=== PATIENT | male | born 1965 | race Hispanic/Latino ===

== ENCOUNTER 2018-10-18 17:31 | Inpatient (IN) | payer MEDICARE ==
--- NOTE | 2018-10-18 18:02 | C.PDOC ---
History Of Present Illness 53 y/o male was transferred from [facility] for admission of depression. Patient reports long time with depression and anxiety, mainly complains of hunger at this time. Time Seen by Provider: 10/18/18 17:52 Chief Complaint (Nursing): Psychiatric Evaluation History Per: Patient History/Exam Limitations: no limitations Onset/Duration Of Symptoms: Days Current Symptoms Are (Timing): Still Present Severity: Moderate Past Medical History Reviewed: Historical Data, Nursing Documentation, Vital Signs - Medical History PMH: No Chronic Diseases Other Surgeries: Hx of surgeries Family History: States: No Known Family Hx Review Of Systems Except As Marked, All Systems Reviewed And Found Negative. Constitutional: Negative for: Fever, Chills Psych: Positive for: Anxiety, Depression. Negative for: Suicidal ideation Physical Exam - Physical Exam Appears: No Acute Distress Skin: Normal Color, Warm, Dry Head: Atraumatic, Normacephalic Eye(s): bilateral: Normal Inspection Nose: Normal Oral Mucosa: Moist Neck: Supple Chest: Symmetrical Cardiovascular: Rhythm Regular Respiratory: Normal Breath Sounds, No Rales, No Rhonchi, No Wheezing Gastrointestinal/Abdominal: Normal Exam, Soft, No Tenderness, No Guarding, No Rebound Neurological/Psych: Oriented x3, Normal Speech Medical Decision Making Medical Decision Making: Transfer forms and papers reviewed. Patient was accepted for psych admission by Dr Zhao for Depression Disposition - Disposition Disposition: HOSPITALIZED Disposition Time: 18:01 Condition: STABLE - POA Present On Arrival: None - Clinical Impression Clinical Impression: Depression - PA / SENIOR ASSET MANAGER / Resident Statement MD/DO has reviewed & agrees with the documentation as recorded. - Scribe Statement The provider has reviewed the documentation as recorded by the Dona Maloney Provider Attestation All medical record entries made by the Mylesibe were at my direction and personally dictated by me. I have reviewed the chart and agree that the record accurately reflects my personal performance of the history, physical exam, medical decision making, and the department course for this patient. I have also personally directed, reviewed, and agree with the discharge instructions and disposition. Decision To Admit - Pt Status Changed To: Hospital Disposition Of: Inpatient - Admit Certification Admit to Inpatient:: After my assessment, the patient will require hospitalization for at least two midnights. This is because of the severity of symptoms shown, intensity of services needed, and/or the medical risk in this patient being treated as an outpatient. - InPatient: Physician Admission Certification: I certify that this patient requires 2 or more midnights of care for the following reason:: Patient with history of depression and expressed SI, will benefit from inpatient treatment for psych disorder - . Bed Request Type: Psychiatry Admitting Physician: Mojgan Zhao Patient Diagnosis: Depression
--- NOTE | 2018-10-18 19:02 | PCM.BM ---
<ManzanaresRenetta Shavonne - Last Filed: 10/18/18 19:01> Treatment Plan Problems - Problems identified on initial assessmt Depression Date Initiated: 10/18/18 Time Initiated: 19:01 Assessment reference: NA Status: Active Treatment assets and liabiliti Patient Assests: cooperative, ADL independent, negotiates basic needs, cognitively intact Patient Liabilities: live alone, financial problems, poor support system, substance abuse, medical problems - Milieu Protocol Maintain good personal hygiene: daily Encourage regular showers, daily Remind patient to perform daily oral care, daily Assist patient to perform ADL's Conduct patient checks and document Observation sheet: Q15 minutes Maintain personal safety: every shift Educate patient to report safety concerns to staff, every shift Monitor environment for contraband/sharps Medication safety: Monitor for expected outcome, potential side effects: every shift, Assess barriers to learning: every shift, Assess readiness for medication education: every shift <Aarti Hill - Last Filed: 10/19/18 16:21> Family Contact Family involvement: Patient does not wish Family/SO involvement Family contact: Patient declines to allow family contact at present - Goals for Treatment Patient goals for treatment: "I want to be referred to an outpatient program." Discharge/Continuing Care - Education Needs Education Needs: Patient Medication, Patient Diagnosis/Disease Process, Patient Coping Skills, Patient Placement options, Patient Community resources - Discharge Discharge Criteria: Free of Suicidal thoughts, Normal sleep pattern, Ability to care for self, Reduction of target symptoms Discharge to:: Home, With Family - Treatment Team Participation Discussed with Family/SO: No Was Patient/Family/SO present at Treatment Team Meeting: Yes <Harrison Ashraf - Last Filed: 10/22/18 18:50> - Diagnosis (1) Major depressive disorder, recurrent severe without psychotic features Status: Acute Interventions: 10/22/18 18:49 * Assess/adjust medications daily and /or as needed * See patient on an individual basis 7x/week to assess status of hallucinations * Discuss risks, benefits, side effects and alternatives of medications (2) Opioid use disorder, severe, dependence Status: Acute Interventions: 10/22/18 18:50 * Assess 7x/week regarding severity of withdrawal * Educate regarding risks, benefits, side effects and alternatives of medications * Use Motivational Interviewing for abstinence * Use CBT for relapse prevention * Medication management for withdrawal symptoms * Encourage medication assisted treatment
[2018-10-18] MEDS ORDERED: oxyCODONE 30 mg Immediate Release Tab PO PRN (19:52)
[2018-10-18] MEDS: oxyCODONE 30 mg Immediate Release Tab PO PRN (22:01)
[2018-10-19] MEDS: oxyCODONE 30 mg Immediate Release Tab PO PRN ×3 (06:12→22:22)
--- NOTE | 2018-10-19 16:52 | PCM.PSYCH ---
Initial Psychiatric Evaluation - Initial Psychiatric Evaluation Type of Admission: Voluntary Legal Status: Capacity Chief Complaint (in patient's own words): I'm here for for my depression and passive suicidal ideations. History of Present Illness and Precipitating Events: Patient is a 53 years old, , unemployed, on disability, male who was admitted due to worsening of depression and suicidal ideations. Patient with history of depression and suicidal ideations without any plan started in December 2017 after the of his mother. Patient reported now his depression is worse was sleeping and appetite problem. Denied any previous suicidal attempts. Feels hopeless and helpless. Also reported that when he is very depressed he hears and sees things. He has history of one previous psychiatric admission at [facility]. Patient denied any visit to any psychiatrist in the past. His psychiatrist is prescribing him medications including OxyContin. Patient denied any current psychotic, manic or anxiety symptoms. Denied use of any drugs including alcohol, cocaine, cannabis and heroin. History of cannabis use during his high school years. Patient also taking OxyContin every 4 hours and was feeling anxious at the time of next dose of just before next dose. Patient was born in [place] and has high school graduation. Not working, is on disability. He is and has 2 grown-up kids. He lives with ex-. His height is 6 feet and weight is 280 pounds. Current Medications: Active Medications Generic Name Dose Route Start Last Admin Trade Name Freq PRN Reason Stop Dose Admin Apixaban 5 mg 10/18/18 19:30 10/19/18 09:06 Eliquis PO 5 mg BID CARTER Administration Aspirin 81 mg 10/19/18 10:00 10/19/18 09:06 Ecotrin PO 81 mg DAILY CARTER Administration Duloxetine HCl 30 mg 10/19/18 10:00 10/19/18 09:06 Cymbalta PO 30 mg DAILY CARTER Administration Gabapentin 300 mg 10/18/18 19:45 10/19/18 09:06 Neurontin PO 300 mg BID CARTER Administration Hydroxyzine HCl 50 mg 10/18/18 19:31 10/19/18 12:17 Atarax PO 50 mg Q6H PRN Administration Anxiety Influenza Virus Vaccine 60 mcg 10/21/18 10:00 Fluzone Quad [id number] IM 10/21/18 10:01 .ONCE ONE Lisinopril 20 mg 10/19/18 10:00 10/19/18 09:06 Zestril PO 20 mg DAILY CARTER Administration Oxycodone HCl 30 mg 10/18/18 21:33 10/19/18 14:23 Oxycodone Immediate Release Tab PO 30 mg Q8H PRN Administration Pain, severe (8-10) Pneumococcal Polyvalent Vaccine 0.5 ml 10/21/18 10:00 Pneumovax 23 Vaccine IM 10/21/18 10:01 .ONCE ONE Rosuvastatin Calcium 10 mg 10/18/18 22:00 10/18/18 21:29 Crestor PO 10 mg HS CARTER Administration Trazodone HCl 100 mg 10/18/18 19:31 10/18/18 21:29 Desyrel PO 100 mg HS PRN Administration Insomnia Past Psychiatric History - Past Psychiatric History Previous Treatment History: Inpatient At [facility] hospital: [facility] History of Abuse: None reported History of ETOH/Drug Use: See HPI History of Family Illness: Reported his father has history of unknown psychiatric illness. Pertinent Medical Hx (Current Medical&Sleep Prob, Allergies): Allergies Allergy/AdvReac Type Severity Reaction Status Date / Time Penicillins Allergy Verified 10/18/18 18:01 ALPRAZolam [Xanax] 1 mg PO TID 10/18/18 Apixaban [Eliquis] 5 mg PO BID 10/18/18 Aspirin [Ecotrin] 81 mg PO DAILY 10/18/18 Gabapentin [Neurontin] 100 mg PO TID 10/18/18 Lisinopril [Zestril] 40 mg PO DAILY 10/18/18 Oxycodone HCl [Roxicodone] 30 mg PO Q6 10/18/18 Pravastatin Sodium [Pravachol] 20 mg PO DAILY 10/18/18 Sertraline [Zoloft] 125 mg PO DAILY 10/18/18 hydrOXYzine HCl [Atarax] 50 mg PO Q6 10/18/18 traZODone [trazODONE HYDROCHLORIDE] 50 mg PO HS 10/18/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 DVT, left lower leg Coronary artery disease Hypertension Hypercholesterinemia Obesity Review of Systems - Psychiatric Psychiatric: As Per HPI, Depression, Hopelessness Mental Status Examination - Personal Presentation Personal Presentation: Looks stated age - Affect Affect: Depressed - Motor Activity Motor Activity: Calm - Reliability in Providing Information Reliability in Providing Information: Fair - Speech Speech: Relevant - Mood Mood: Depressed - Formal Thought Process Formal Thought Process: No Impairment - Hallucinations/Delusions Hallucinations: Other (None reported) Delusions: Other - Obsessions/Compulsions Obsessions: None Compulsions: None - Cognitive Functions Orientation: Person, Place, Situation, Time Sensorium: Alert Attention/Concentration: Attentive Abstract Thinking: [place] Estimate of Intelligence: Average Judgement: Imparied, as evidence by: Lack of insight into illness Memory: Recent intact, as evidence by: Ability to recall events of the day, Remote intact, as evidenced by: Ability to recall historical events - Risk Risk: Withdrawal, Diminished functioning - Strength & Assets Inventory Strength & Assets Inventory: Family support, Cooperative - Limitations Limitations: Other (Lives with his ex-) DSM 5 DX - DSM 5 DSM 5 Diagnosis: Major depressive disorder recurrent severe without psychotic features Opioid use disorder severe - Recommended/Plan of Treatment Treatment Recommendations and Plan of Treatment: Patient education. Supportive therapy. CBT for relapse prevention. GA for abstinence. We will continue medication for depression and other medical issues. Also when necessary medications. Projected ELOS: 8-10 days - Smoking Cessation Smoking Cessation Initiated: No
[2018-10-20] MEDS: oxyCODONE 30 mg Immediate Release Tab PO PRN ×3 (06:23→22:18)
--- NOTE | 2018-10-20 15:09 | PCM.PYCHPN ---
Psychiatric Progress Note - Psychiatric Progress Note Patient seen today, length of contact: 15 minutes Patient Chief Complaint: I'm feeling little better. Problems Identified/Issues Discussed: Patient seen, chart reviewed, case discussed with the staff. Issues related to illness and treatment were discussed with the patient and staff. Reported compliant with treatment with no adverse effects. Tolerating treatment very well. Reported feeling little better with better sleep. Awake, alert and confused Calm and cooperative with good eye contact. Mood reported as depressed. Affect appropriate. Treatment discussed with the patient. Needs more time for stabilization. Aftercare discussed with the patient. Denied any delusions, auditory or visual hallucinations, suicidal ideations or homicidal ideations at the time of evaluation. Medical Problems: Rodney's syndrome Rheumatoid arthritis osteoarthritis DVT left lower leg Coronary artery disease Hypertension Hypercholesterinemia Obesity Diagnostic Results: Reviewed DSM 5 Symptoms Update: Some improvement with treatment Medication Change: No Medical Record Reviewed: Yes Mental Status Examination - Cognitive Function Orientation: Person, Place, Situation, Time Memory: Intact Attention: WNL Concentration: WNL Association: WNL Fund of Knowledge: WNL - Mood Mood: Depressed (Less than before) - Affect Affect: Other (Appropriate) - Speech Speech: Appropriate - Formal Thought Process Formal Thought Process: No Impairment Psychotic Thoughts and Behaviors: None - Suicidal Ideation Suicidal Ideation: No - Homicidal Ideation Homicidal Ideation: No Goal/Treatment Plan - Goal/Treatment Plan Need for Continued Stay: Remain at risks for inpatient hospitalization, Discharge may exacerbated symptoms, Severe functional impairment Progress Toward Problem(s) and Goals/Treatment Plan: Patient education. Supportive therapy. CBT for relapse prevention. PR for abstinence. Continue treatment as before. Estimated Date of D/C: 10/24/18 - Smoking Cessation Smoking Cessation Initiated: No Reason for not providing: Patient doesn't smoke cigarettes
[2018-10-21] MEDS: oxyCODONE 30 mg Immediate Release Tab PO PRN ×3 (06:21→22:24)
[2018-10-21] MEDS ORDERED: Influenza Vaccine 60 MCG/0.5 ML SYR (3 yr & up) IM ONE (10:00)
[2018-10-21] MEDS ORDERED: Pneumococcal 23-Valent Vaccine IM ONE (10:00)
--- NOTE | 2018-10-21 18:38 | PCM.PYCHPN ---
Psychiatric Progress Note - Psychiatric Progress Note Patient seen today, length of contact: 15 minutes Patient Chief Complaint: I'm feeling suicidal again. Problems Identified/Issues Discussed: Patient seen, chart reviewed, case discussed with the staff. Issues related to illness and treatment were discussed with the patient and staff. Reported compliant with treatment with no adverse effects. Tolerating treatment very well. Reported feeling suicidal again. We will start lithium 300 mg twice a day. Patient agreed. Awake, alert and oriented 3. Calm and cooperative with good eye contact. Mood reported as depressed. Affect appropriate. Treatment discussed with the patient. Needs more time for stabilization. Aftercare discussed with the patient. Denied any delusions, auditory or visual hallucinations, suicidal ideations or homicidal ideations at the time of evaluation. Medical Problems: Rodney's syndrome Rheumatoid arthritis osteoarthritis DVT left lower leg Coronary artery disease Hypertension Hypercholesterinemia Obesity Diagnostic Results: Reviewed Medication Change: Yes (We will start lithium 300 mg twice a day) Medical Record Reviewed: Yes Mental Status Examination - Cognitive Function Orientation: Person, Place, Situation, Time Memory: Intact Attention: WNL Concentration: WNL Association: WNL Fund of Knowledge: [facility] Decription of patient's judgement and insights: Fair - Mood Mood: Depressed (Less than before) - Affect Affect: Other (Appropriate) - Speech Speech: Appropriate - Formal Thought Process Formal Thought Process: No Impairment Psychotic Thoughts and Behaviors: None - Suicidal Ideation Suicidal Ideation: No - Homicidal Ideation Homicidal Ideation: No Goal/Treatment Plan - Goal/Treatment Plan Need for Continued Stay: Remain at risks for inpatient hospitalization, Discharge may exacerbated symptoms, Severe functional impairment Progress Toward Problem(s) and Goals/Treatment Plan: Patient education. Supportive therapy. CBT for relapse prevention. PR for abstinence. We will start lithium 300 mg twice a day. Continue rest of the treatment as before. Estimated Date of D/C: 10/24/18 - Smoking Cessation Smoking Cessation Initiated: No Reason for not providing: Patient does smoke cigarettes.
[2018-10-22] MEDS: oxyCODONE 30 mg Immediate Release Tab PO PRN ×3 (06:29→22:34)
--- NOTE | 2018-10-22 18:53 | PCM.PYCHPN ---
Psychiatric Progress Note - Psychiatric Progress Note Patient seen today, length of contact: 15 minutes Patient Chief Complaint: I am feeling little better. Problems Identified/Issues Discussed: Patient seen, chart reviewed, case discussed with the staff. Issues related to illness and treatment were discussed with the patient and staff. Reported compliant with treatment with no adverse effects. Tolerating treatment very well. Reported feeling little better, less suicidal. Awake, alert and oriented 3. Calm and cooperative with good eye contact. Mood reported as depressed. Affect appropriate. Treatment discussed with the patient. Needs more time for stabilization. Aftercare discussed with the patient. Denied any delusions, auditory or visual hallucinations, suicidal ideations or homicidal ideations at the time of evaluation. Medical Problems: Rodney's syndrome Rheumatoid arthritis osteoarthritis DVT left lower leg Coronary artery disease Hypertension Hypercholesterinemia Obesity Diagnostic Results: Reviewed DSM 5 Symptoms Update: Some improvement with treatment Medication Change: No Medical Record Reviewed: Yes Mental Status Examination - Cognitive Function Orientation: Person, Place, Situation, Time Memory: Intact Attention: WNL Concentration: WNL Association: WN Fund of Knowledge: [facility] Decription of patient's judgement and insights: Fair - Mood Mood: Depressed (Less than before) - Affect Affect: Other (Appropriate) - Speech Speech: Appropriate - Formal Thought Process Formal Thought Process: No Impairment Psychotic Thoughts and Behaviors: None - Suicidal Ideation Suicidal Ideation: No - Homicidal Ideation Homicidal Ideation: No Goal/Treatment Plan - Goal/Treatment Plan Need for Continued Stay: Remain at risks for inpatient hospitalization, Di carlito may exacerbated symptoms, Severe functional impairment Progress Toward Problem(s) and Goals/Treatment Plan: Patient education. Supportive therapy. CBT for relapse prevention. AL for abstinence. Continue treatment as before. Estimated Date of D/C: 10/24/18 - Smoking Cessation Smoking Cessation Initiated: No Reason for not providing: Patient doesn't smoke cigarettes
[2018-10-23] MEDS: oxyCODONE 30 mg Immediate Release Tab PO PRN ×3 (06:39→22:37)
--- NOTE | 2018-10-23 12:46 | PCM.PYCHPN ---
Psychiatric Progress Note - Psychiatric Progress Note Patient seen today, length of contact: 15 minutes Patient Chief Complaint: "I am still depressed" Problems Identified/Issues Discussed: The pt is seen, chart reviewed, case discussed with staff. The pt is compliant with medications and reports no side-effects. Symptoms are improving but needs more time to stabilize. He says he has some SI but no plan or intention - ways to avoid discussed. Pt attends groups and activities. Support given, psycho-education provided. Medication Change: Yes (increase cymbalta) Medical Record Reviewed: Yes Mental Status Examination - Cognitive Function Orientation: Person, Place, Situation, Time Memory: Impaired Attention: WNL Concentration: Poor Association: WNL Fund of Knowledge: WNL - Mood Mood: Depressed - Affect Affect: Constricted - Speech Speech: Appropriate - Formal Thought Process Formal Thought Process: No Impairment - Suicidal Ideation Suicidal Ideation: No - Homicidal Ideation Homicidal Ideation: No Goal/Treatment Plan - Goal/Treatment Plan Need for Continued Stay: Severe depression anxiety, Discharge may exacerbated symptoms, Severe functional impairment Progress Toward Problem(s) and Goals/Treatment Plan: Continue medications Support and psychoeducation daily Attend groups and activities daily After care planning by JULIO Estimated Date of D/C: 10/24/18
[2018-10-24] MEDS: oxyCODONE 30 mg Immediate Release Tab PO PRN ×3 (06:43→22:44)
--- NOTE | 2018-10-24 19:00 | PCM.PYCHPN ---
Psychiatric Progress Note - Psychiatric Progress Note Patient seen today, length of contact: 15 minutes Patient Chief Complaint: I am feeling better but still I'm depressed. Problems Identified/Issues Discussed: Patient seen, chart reviewed, case discussed with the staff. Issues related to illness and treatment were discussed with the patient and staff. Reported compliant with treatment with no adverse effects. Tolerating treatment very well. Reported feeling better, less suicidal but still feeling depressed. Education provided about the treatment. Also offered to increase the dose of lithium to 450 mg twice a day. Patient understood and agreed. Awake, alert and oriented 3. Calm and cooperative with good eye contact. Mood reported as depressed. Affect appropriate. Treatment discussed with the patient. Needs more time for stabilization. Aftercare discussed with the patient. Denied any delusions, auditory or visual hallucinations, suicidal ideations or homicidal ideations at the time of evaluation. Medical Problems: Rodney's syndrome Rheumatoid arthritis osteoarthritis DVT left lower leg Coronary artery disease Hypertension Hypercholesterinemia Obesity Diagnostic Results: Reviewed DSM 5 Symptoms Update: Some improvement with treatment. Medication Change: Yes (Dose of lithium increased to 450 mg twice a day) Medical Record Reviewed: Yes Mental Status Examination - Cognitive Function Orientation: Person, Place, Situation, Time Memory: Intact Attention: WNL Concentration: WNL Association: WN Fund of Knowledge: [facility] Decription of patient's judgement and insights: Fair - Mood Mood: Depressed (Less than before) - Affect Affect: Other (Appropriate) - Speech Speech: Appropriate - Formal Thought Process Formal Thought Process: No Impairment Psychotic Thoughts and Behaviors: None - Suicidal Ideation Suicidal Ideation: No - Homicidal Ideation Homicidal Ideation: No Goal/Treatment Plan - Goal/Treatment Plan Need for Continued Stay: Remain at risks for inpatient hospitalization, Discharge may exacerbated symptoms, Severe functional impairment Progress Toward Problem(s) and Goals/Treatment Plan: Patient education. Supportive therapy. CBT for relapse prevention. [place] for abstinence. We will increase the dose of lithium to 450 mg twice a day. Continue rest of the treatment as before. Estimated Date of D/C: 10/28/18 - Smoking Cessation Smoking Cessation Initiated: No
[2018-10-25] MEDS: oxyCODONE 30 mg Immediate Release Tab PO PRN ×3 (06:52→22:46)
[2018-10-25] MEDS: Lithium Carbonate ER Tab 450 MG PO SCH ×2 (09:02→18:05)
--- NOTE | 2018-10-25 23:31 | PCM.PYCHPN ---
Psychiatric Progress Note - Psychiatric Progress Note Patient seen today, length of contact: 15 minutes Patient Chief Complaint: I am feeling better. Problems Identified/Issues Discussed: Patient seen, chart reviewed, case discussed with the staff. Issues related to illness and treatment were discussed with the patient and staff. Reported compliant with treatment with no adverse effects. Tolerating treatment very well. Reported feeling better, less suicidal. Awake, alert and oriented 3. Calm and cooperative with good eye contact. Mood reported as okay. Affect appropriate. Treatment discussed with the patient. Needs more time for stabilization. Aftercare discussed with the patient. Denied any delusions, auditory or visual hallucinations, suicidal ideations or homicidal ideations at the time of evaluation. Medical Problems: Rodney's syndrome Rheumatoid arthritis osteoarthritis DVT left lower leg Coronary artery disease Hypertension Hypercholesterinemia Obesity Diagnostic Results: Reviewed DSM 5 Symptoms Update: Some improvement with treatment. Medication Change: No Medical Record Reviewed: Yes Mental Status Examination - Cognitive Function Orientation: Person, Place, Situation, Time Memory: Intact Attention: WNL Concentration: WNL Association: WN Fund of Knowledge: [facility] Decription of patient's judgement and insights: Fair - Mood Mood: Depressed (Much less than before) - Affect Affect: Other (Appropriate) - Speech Speech: Appropriate - Formal Thought Process Formal Thought Process: No Impairment Psychotic Thoughts and Behaviors: None - Suicidal Ideation Suicidal Ideation: No - Homicidal Ideation Homicidal Ideation: No Goal/Treatment Plan - Goal/Treatment Plan Need for Continued Stay: Remain at risks for inpatient hospitalization, Discharge may exacerbated symptoms, Severe functional impairment Progress Toward Problem(s) and Goals/Treatment Plan: Patient education. Supportive therapy. CBT for relapse prevention. ME for abstinence. Continue treatment as before. Estimated Date of D/C: 10/28/18 - Smoking Cessation Smoking Cessation Initiated: No
[2018-10-26] MEDS: oxyCODONE 30 mg Immediate Release Tab PO PRN ×3 (07:06→22:51)
[2018-10-26] MEDS: Lithium Carbonate ER Tab 450 MG PO SCH ×2 (10:15→17:49)
--- NOTE | 2018-10-26 10:46 | PCM.BM ---
<Aarti Hill Carlos - Last Filed: 10/26/18 10:45> Treatment Plan Problems - Problems identified on initial assessmt Depression Date Initiated: 10/18/18 Time Initiated: 19:01 Assessment reference: NA Status: Active Treatment assets and liabiliti Patient Assests: cooperative, ADL independent, negotiates basic needs, cognitively intact Patient Liabilities: live alone, financial problems, poor support system, substance abuse, medical problems - Milieu Protocol Maintain good personal hygiene: daily Encourage regular showers, daily Remind patient to perform daily oral care, daily Assist patient to perform ADL's Conduct patient checks and document Observation sheet: Q15 minutes Maintain personal safety: every shift Educate patient to report safety concerns to staff, every shift Monitor environment for contraband/sharps Medication safety: Monitor for expected outcome, potential side effects: every shift, Assess barriers to learning: every shift, Assess readiness for medication education: every shift Milieu Narrative: Patient education. Supportive therapy. CBT for relapse prevention. [place] for abstinence. Continue treatment as before. Family Contact Family involvement: Patient does not wish Family/SO involvement Family contact: Patient declines to allow family contact at present - Goals for Treatment Patient goals for treatment: "I want to be referred to an outpatient program." Discharge/Continuing Care - Education Needs Education Needs: Patient Medication, Patient Diagnosis/Disease Process, Patient Coping Skills, Patient Placement options, Patient Community resources - Discharge Discharge Criteria: Free of Suicidal thoughts, Normal sleep pattern, Ability to care for self, Reduction of target symptoms Discharge to:: Home, With Family - Treatment Team Participation Patient/Family/SO Statement: Patient education. Supportive therapy. CBT for relapse prevention. [place] for abstinence. Continue treatment as before. Discussed with Family/SO: No Was Patient/Family/SO present at Treatment Team Meeting: Yes Treatment Plan Review - Problem Depression Time Initiated: : - Discharge / Continuing Care Discharge to:: Home, With Family Behavioral Health Services: Outpatient therapy Health Needs: Follow up care/test, Medications/Rx <Harrison Ashraf - Last Filed: 10/26/18 14:25> - Diagnosis (1) Major depressive disorder, recurrent severe without psychotic features Status: Acute Interventions: 10/26/18 14:25 * Assess/adjust medications daily and /or as needed * See patient on an individual basis 7x/week to assess status of hallucinations * Discuss risks, benefits, side effects and alternatives of medications (2) Opioid use disorder, severe, dependence Status: Acute Interventions: 10/26/18 14:25 * Assess 7x/week regarding severity of withdrawal * Educate regarding risks, benefits, side effects and alternatives of medications * Use Motivational Interviewing for abstinence * Use CBT for relapse prevention * Medication management for withdrawal symptoms * Encourage medication assisted treatment
--- NOTE | 2018-10-26 14:28 | PCM.PYCHPN ---
Psychiatric Progress Note - Psychiatric Progress Note Patient seen today, length of contact: 15 minutes Patient Chief Complaint: I am feeling little better. Tum[place]-Carmen is helping me, now I have very less suicidal ideations. Problems Identified/Issues Discussed: Patient seen, chart reviewed, case discussed with the staff. Issues related to illness and treatment were discussed with the patient and staff. Reported compliant with treatment with no adverse effects. Tolerating treatment very well. Reported feeling little better after increasing the dose of lithium. His mood is also better and has less suicidal ideations. Now patient is more visible on the unit, socializing with other patients, attending groups and other activities on the unit. Awake, alert and oriented 3. Calm and cooperative with good eye contact. Mood reported as okay. Affect appropriate. Treatment discussed with the patient. Needs more time for stabilization. Aftercare discussed with the patient. Denied any delusions, auditory or visual hallucinations, suicidal ideations or h omicidal ideations at the time of evaluation. Medical Problems: Rodney's syndrome Rheumatoid arthritis osteoarthritis DVT left lower leg Coronary artery disease Hypertension Hypercholesterinemia Obesity Diagnostic Results: Reviewed DSM 5 Symptoms Update: Some improvement with treatment. Medication Change: No Medical Record Reviewed: Yes Mental Status Examination - Cognitive Function Orientation: Person, Place, Situation, Time Memory: Intact Attention: WNL Concentration: WNL Association: [facility] Fund of Knowledge: [facility] Decription of patient's judgement and insights: Fair - Mood Mood: Depressed (Much less than before) - Affect Affect: Other (Appropriate) - Speech Speech: Appropriate - Formal Thought Process Formal Thought Process: No Impairment Psychotic Thoughts and Behaviors: None - Suicidal Ideation Suicidal Ideation: No - Homicidal Ideation Homicidal Ideation: No Goal/Treatment Plan - Goal/Treatment Plan Need for Continued Stay: Remain at risks for inpatient hospitalization, Discharge may exacerbated symptoms, Severe functional impairment Progress Toward Problem(s) and Goals/Treatment Plan: Patient education. Supportive therapy. CBT for relapse prevention. [place] for abstinence. Continue treatment as before. Estimated Date of D/C: 10/28/18 - Smoking Cessation Smoking Cessation Initiated: No Reason for not providing: Patient does not smoke cigarettes.
[2018-10-27] MEDS: oxyCODONE 30 mg Immediate Release Tab PO PRN ×3 (07:00→23:26)
[2018-10-27] MEDS: Lithium Carbonate ER Tab 450 MG PO SCH ×2 (09:50→18:21)
--- NOTE | 2018-10-27 23:20 | PCM.PYCHPN ---
Psychiatric Progress Note - Psychiatric Progress Note Patient seen today, length of contact: 15 minutes Patient Chief Complaint: I am feeling little better. Problems Identified/Issues Discussed: Patient seen, chart reviewed, case discussed with the staff. Issues related to illness and treatment were discussed with the patient and staff. Reported compliant with treatment with no adverse effects. Tolerating treatment very well. Reported feeling little better after increasing the dose of lithium. Now patient is more visible on the unit, socializing with other patients, attending groups and other activities on the unit. Awake, alert and oriented 3. Calm and cooperative with good eye contact. Mood reported as okay. Affect appropriate. Treatment discussed with the patient. Needs more time for stabilization. Aftercare discussed with the patient. Denied any delusions, auditory or visual hallucinations, suicidal ideations or homicidal ideations at the time of evaluation. Medical Problems: Rodney's syndrome Rheumatoid arthritis osteoarthritis DVT left lower leg Coronary artery disease Hypertension Hypercholesterinemia Obesity Diagnostic Results: Reviewed DSM 5 Symptoms Update: Improving with treatment. Medication Change: No Medical Record Reviewed: Yes Mental Status Examination - Cognitive Function Orientation: Person, Place, Situation, Time Memory: Intact Attention: WNL Concentration: WNL Association: [facility] Fund of Knowledge: [facility] Decription of patient's judgement and insights: Fair - Mood Mood: Depressed (Much less than before) - Affect Affect: Other (Appropriate) - Speech Speech: Appropriate - Formal Thought Process Formal Thought Process: No Impairment Psychotic Thoughts and Behaviors: None - Suicidal Ideation Suicidal Ideation: No - Homicidal Ideation Homicidal Ideation: No Goal/Treatment Plan - Goal/Treatment Plan Need for Continued Stay: Remain at risks for inpatient hospitalization, Discharge may exacerbated symptoms, Severe functional impairment Progress Toward Problem(s) and Goals/Treatment Plan: Patient education. Supportive therapy. CBT for relapse prevention. [place] for abstinence. Continue treatment as before. Estimated Date of D/C: 10/28/18 - Smoking Cessation Smoking Cessation Initiated: No
[2018-10-28] MEDS: oxyCODONE 30 mg Immediate Release Tab PO PRN ×3 (07:32→23:32)
[2018-10-28] MEDS: Lithium Carbonate ER Tab 450 MG PO SCH ×2 (09:30→17:15)
--- NOTE | 2018-10-28 17:20 | PCM.PYCHPN ---
Psychiatric Progress Note - Psychiatric Progress Note Patient seen today, length of contact: 15 minutes Patient Chief Complaint: I am feeling better. Problems Identified/Issues Discussed: Patient seen, chart reviewed, case discussed with the staff. Issues related to illness and treatment were discussed with the patient and staff. Reported compliant with treatment with no adverse effects. Tolerating treatment very well. Reported feeling better after increasing the dose of lithium. Patient is more visible on the unit, socializing with other patients, attending groups and other activities on the unit. Awake, alert and oriented 3. Calm and cooperative with good eye contact. Mood reported as okay. Affect appropriate. Treatment discussed with the patient. Needs more time for stabilization. Aftercare discussed with the patient. Denied any delusions, auditory or visual hallucinations, suicidal ideations or homicidal ideations at the time of evaluation. Medical Problems: Rodney's syndrome Rheumatoid arthritis osteoarthritis DVT left lower leg Coronary artery disease Hypertension Hypercholesterinemia Obesity Diagnostic Results: Reviewed DSM 5 Symptoms Update: Improving with treatment. Medication Change: No Medical Record Reviewed: Yes Mental Status Examination - Cognitive Function Orientation: Person, Place, Situation, Time Memory: Intact Attention: WNL Concentration: WNL Association: [facility] Fund of Knowledge: [facility] Decription of patient's judgement and insights: Fair - Mood Mood: Depressed (Much less than before) - Affect Affect: Other (Appropriate) - Speech Speech: Appropriate - Formal Thought Process Formal Thought Process: No Impairment Psychotic Thoughts and Behaviors: None - Suicidal Ideation Suicidal Ideation: No - Homicidal Ideation Homicidal Ideation: No Goal/Treatment Plan - Goal/Treatment Plan Need for Continued Stay: Remain at risks for inpatient hospitalization, Discharge may exacerbated symptoms, Severe functional impairment Progress Toward Problem(s) and Goals/Treatment Plan: Patient education. Supportive therapy. CBT for relapse prevention. [place] for abstinence. Continue treatment as before. Estimated Date of D/C: 10/31/18 - Smoking Cessation Smoking Cessation Initiated: No
[2018-10-29] MEDS: oxyCODONE 30 mg Immediate Release Tab PO PRN ×3 (07:33→23:59)
[2018-10-29] MEDS: Lithium Carbonate ER Tab 450 MG PO SCH ×2 (09:05→17:48)
--- NOTE | 2018-10-29 20:43 | PCM.PYCHPN ---
Psychiatric Progress Note - Psychiatric Progress Note Patient seen today, length of contact: 15 minutes Patient Chief Complaint: I am feeling much better. Problems Identified/Issues Discussed: Patient seen, chart reviewed, case discussed with the staff. Issues related to illness and treatment were discussed with the patient and staff. Reported compliant with treatment with no adverse effects. Tolerating treatment very well. Reported feeling much better. Patient is more visible on the unit, socializing with other patients, attending groups and other activities on the unit. Awake, alert and oriented 3. Calm and cooperative with good eye contact. Mood reported as okay. Affect appropriate. Treatment discussed with the patient. Needs more time for stabilization. Aftercare discussed with the patient. Denied any delusions, auditory or visual hallucinations, suicidal ideations or homicidal ideations at the time of evaluation. Medical Problems: Rodney's syndrome Rheumatoid arthritis osteoarthritis DVT left lower leg Coronary artery disease Hypertension Hypercholesterinemia Obesity Diagnostic Results: Reviewed DSM 5 Symptoms Update: Improvement with treatment. Medication Change: No Medical Record Reviewed: Yes Mental Status Examination - Cognitive Function Orientation: Person, Place, Situation, Time Memory: Intact Attention: WNL Concentration: WNL Association: WNL Fund of Knowledge: [facility] Decription of patient's judgement and insights: Fair - Mood Mood: Depressed (Much less than before) - Affect Affect: Other (Appropriate) - Speech Speech: Appropriate - Formal Thought Process Formal Thought Process: No Impairment Psychotic Thoughts and Behaviors: None - Suicidal Ideation Suicidal Ideation: No - Homicidal Ideation Homicidal Ideation: No Goal/Treatment Plan - Goal/Treatment Plan Need for Continued Stay: Remain at risks for inpatient hospitalization, Discharge may exacerbated symptoms, Severe functional impairment Progress Toward Problem(s) and Goals/Treatment Plan: Patient education. Supportive therapy. CBT for relapse prevention. [place] for abstinence. Continue treatment as before. Estimated Date of D/C: 10/31/18 - Smoking Cessation Smoking Cessation Initiated: No
[2018-10-30 06:45] VITALS: O2SAT 93
[2018-10-30] MEDS: oxyCODONE 30 mg Immediate Release Tab PO PRN ×2 (08:04→16:05)
[2018-10-30] MEDS: Lithium Carbonate ER Tab 450 MG PO SCH ×2 (09:15→17:47)
--- NOTE | 2018-10-30 16:18 | PCM.PYCHPN ---
Psychiatric Progress Note - Psychiatric Progress Note Patient seen today, length of contact: 15 minutes Patient Chief Complaint: I am feeling much better. Problems Identified/Issues Discussed: Patient seen, chart reviewed, case discussed with the staff. Issues related to illness and treatment were discussed with the patient and staff. Reported compliant with treatment with no adverse effects. Tolerating treatment very well. Reported feeling much better, very less suicidal ideations. Patient is more visible on the unit, socializing with other patients, attending groups and other activities on the unit. Awake, alert and oriented 3. Calm and cooperative with good eye contact. Mood reported as okay. Affect appropriate. Treatment discussed with the patient. Needs more time for stabilization. Aftercare discussed with the patient. Denied any delusions, auditory or visual hallucinations, suicidal ideations or homicidal ideations at the time of evaluation. Medical Problems: Rodney's syndrome Rheumatoid arthritis osteoarthritis DVT left lower leg Coronary artery disease Hypertension Hypercholesterinemia Obesity Diagnostic Results: Reviewed DSM 5 Symptoms Update: Much better with treatment Medication Change: No Medical Record Reviewed: Yes Mental Status Examination - Cognitive Function Orientation: Person, Place, Situation, Time Memory: Intact Attention: WNL Concentration: WNL Association: [facility] Fund of Knowledge: [facility] Decription of patient's judgement and insights: Fair - Mood Mood: Neutral - Affect Affect: Other (Appropriate) - Speech Speech: Appropriate - Formal Thought Process Formal Thought Process: No Impairment Psychotic Thoughts and Behaviors: None - Suicidal Ideation Suicidal Ideation: No - Homicidal Ideation Homicidal Ideation: No Goal/Treatment Plan - Goal/Treatment Plan Need for Continued Stay: Remain at risks for inpatient hospitalization, Discharge may exacerbated symptoms, Severe functional impairment Progress Toward Problem(s) and Goals/Treatment Plan: Patient education. Supportive therapy. CBT for relapse prevention. [place] for abstinence. Continue treatment as before. Estimated Date of D/C: 10/31/18 - Smoking Cessation Smoking Cessation Initiated: No
[2018-10-31] MEDS: oxyCODONE 30 mg Immediate Release Tab PO PRN ×3 (00:10→16:30)
[2018-10-31 07:46] VITALS: RESP 20
[2018-10-31] MEDS: Lithium Carbonate ER Tab 450 MG PO SCH ×2 (09:11→17:19)
--- NOTE | 2018-10-31 11:43 | PCM.PYCHPN ---
Psychiatric Progress Note - Psychiatric Progress Note Patient seen today, length of contact: 15 minutes Patient Chief Complaint: i am feeling down Medication Change: Yes Medical Record Reviewed: Yes Mental Status Examination - Cognitive Function Orientation: Person, Place, Situation, Time Memory: Intact Attention: WNL Concentration: Poor Association: WNL Fund of Knowledge: Poor - Mood Mood: Depressed, Anxious - Affect Affect: Constricted, Depressed - Speech Speech: Appropriate - Formal Thought Process Formal Thought Process: No Impairment - Suicidal Ideation Suicidal Ideation: No - Homicidal Ideation Homicidal Ideation: No Goal/Treatment Plan - Goal/Treatment Plan Need for Continued Stay: Remain at risks for inpatient hospitalization, Discharg e may exacerbated symptoms, Severe functional impairment Progress Toward Problem(s) and Goals/Treatment Plan: Major depressive disorder recurrent severe without psychotic features Opioid use disorder severe Patient education. Supportive therapy. CBT for relapse prevention. [place] for abstinence. Reduce [place] to 300 mg PO BID Cymbalta 60 mg PO daily Trazodone 100 mg PO QHS Estimated Date of D/C: 10/31/18
[2018-11-01] MEDS: oxyCODONE 30 mg Immediate Release Tab PO PRN ×3 (01:03→17:11)
[2018-11-01] MEDS: Lithium Carbonate ER Tab 450 MG PO SCH (10:37)
--- NOTE | 2018-11-01 10:37 | PCM.PYCHPN ---
Psychiatric Progress Note - Psychiatric Progress Note Patient seen today, length of contact: 15 minutes Patient Chief Complaint: i am feeling down Medication Change: Yes Medical Record Reviewed: Yes Mental Status Examination - Cognitive Function Orientation: Person, Place, Situation, Time Memory: Intact Attention: WNL Concentration: Poor Association: WNL Fund of Knowledge: Poor - Mood Mood: Depressed, Anxious - Affect Affect: Constricted, Depressed - Speech Speech: Appropriate - Formal Thought Process Formal Thought Process: No Impairment - Suicidal Ideation Suicidal Ideation: No - Homicidal Ideation Homicidal Ideation: No Goal/Treatment Plan - Goal/Treatment Plan Need for Continued Stay: Remain at risks for inpatient hospitalization, Discharg e may exacerbated symptoms, Severe functional impairment Progress Toward Problem(s) and Goals/Treatment Plan: Major depressive disorder recurrent severe without psychotic features Opioid use disorder severe Patient education. Supportive therapy. CBT for relapse prevention. [place] for abstinence. Reduce [place] to 300 mg PO BID Cymbalta 60 mg PO daily Trazodone 100 mg PO QHS Estimated Date of D/C: 10/31/18
[2018-11-02] MEDS: oxyCODONE 30 mg Immediate Release Tab PO PRN ×2 (01:14→09:25)
[2018-11-02 06:30] VITALS: BP 120/80; PULSE 65; TEMP 98.8
--- NOTE | 2018-11-02 09:42 | PCM.PYCHDC ---
Mental Status Examination - Mental Status Examination Orientation: Person, Place, Situation, Time Memory: Intact Mood: Neutral Affect: Constricted Speech: Soft Attention: WNL Concentration: WNL Association: WNL Fund of Knowledge: WNL Formal Thought Process: No Impairment Description of patient's judgement and insight: good, fair Psychotic Thoughts and Behaviors: denies any AVH Suicidal Ideation: No Current Homicidal Ideation?: No Discharge Summary - Discharge Note Reason for Hospitalization: Patient is a 53 years old, , unemployed, on disability, male who was admitted due to worsening of depression and suicidal ideations. Patient with history of depression and suicidal ideations without any plan started in December 2017 after the of his mother. Patient reported now his depression is worse was sleeping and appetite problem. Denied any previous suicidal attempts. Feels hopeless and helpless. Also reported that when he is very depressed he hears and sees things. He has history of one previous psychiatric admission at [facility]. Patient denied any visit to any psychiatrist in the past. His psychiatrist is prescribing him medications including OxyContin. Patient denied any current psychotic, manic or anxiety symptoms. Denied use of any drugs including alcohol, cocaine, cannabis and heroin. History of cannabis use during his high school years. Patient also taking OxyContin every 4 hours and was feeling anxious at the time of next dose of just before next dose. Patient was born in [place] and has high school graduation. Not working, is on disability. He is and has 2 grown-up kids. He lives with ex-. His height is 6 feet and weight is 280 pounds. Consultations:: List each consultation separately and include: 1. Reason for request. 2. Findings. 3. Follow-up Summary of Hospital Course include:: 1. Description of specific treatment plan utilized for patients during their course of treatmen. 2. Summarize the time- course for resolution of acute symptoms and/or regressed behaviors. 3. Describe issues identified and worked on during hospitalization. 4. Describe medication utilized. 5. Describe medical problems identified and treated. 6. Reassessment of suicide risk - Final Diagnosis (DSM 5) Condition upon Discharge: STABLE DSM 5: Major depressive disorder recurrent severe without psychotic features Opioid use disorder severe Disposition: HOME/ ROUTINE Follow-up Treatment Plan: Major depressive disorder recurrent severe without psychotic features Opioid use disorder severe Patient education. Supportive therapy. CBT for relapse prevention. [place] for abstinence. Reduce [place] to 300 mg PO BID Cymbalta 60 mg PO daily Trazodone 100 mg PO QHS Prescriptions/Medication Reconciliation: Apixaban [Eliquis] 5 mg PO BID #60 tab Aspirin [Ecotrin] 81 mg PO DAILY #30 tabec DULoxetine [Cymbalta] 60 mg PO DAILY #30 ecc Gabapentin [Neurontin] 300 mg PO BID #60 cap Lisinopril [Zestril] 20 mg PO DAILY #30 tab [place] Carbonate [Lithobid] 300 mg PO BID #60 ter Rosuvastatin Calcium [Crestor] 10 mg PO HS #30 tab traZODone [Desyrel] 100 mg PO HS PRN #30 tab PRN Reason: Insomnia - Smoking Cessation Smoking Cessation Medication prescribed: No - Antipsychotic Medications Pt discharged on 2 or more routine antipsychotic medications: No
== END 2018-11-02 12:35 | disposition home or self-care (01) | DRG 885 ==
LOC: C.ER 17:31 → C.9E 18:02 → C.5E 18:33
PROVIDERS: ADMIT Psychiatry & Neurology Psychiatry; ATTEND Psychiatry & Neurology Psychiatry
PROC: GZ56ZZZ Individual Psychotherapy, Supportive (ICD-10-PCS; principal; 2018-10-18)
DX: F33.2 Major depressive disorder, recurrent severe without psychotic features (principal); M02.30 Reiter's disease, unspecified site; R45.851 Suicidal ideations; F11.20 Opioid dependence, uncomplicated; F41.9 Anxiety disorder, unspecified; I10 Essential (primary) hypertension; I25.10 Atherosclerotic heart disease of native coronary artery without angina pectoris; M06.9 Rheumatoid arthritis, unspecified; E78.00 Pure hypercholesterolemia, unspecified; E66.9 Obesity, unspecified; Z68.38 Body mass index [BMI] 38.0-38.9, adult